=== PATIENT | male | born 1975 | race Hispanic/Latino ===

== ENCOUNTER 2021-10-18 12:48 | Emergency (ER) | payer OTHER ==
[~2021-10-18] VITALS: Ht 177.8 cm; Wt 117.9 kg
[2021-10-18] MEDS ORDERED: METOCLOPRAMIDE HCL 10 MG/2ML VIAL IM ONE (13:15)
[2021-10-18] MEDS ORDERED: TETRACAINE HCL 0.5% OPTH SOLN 4 ML BTL OP ONE (13:15)
[2021-10-18] MEDS ORDERED: ACETAMINOPHEN-1 EAC4 PO (13:42)
== END 2021-10-18 13:48 | disposition home or self-care (01) ==
LOC: FSED 13:08
DX: H57.11 Ocular pain, right eye (principal); R51.9 Headache, unspecified; K21.9 Gastro-esophageal reflux disease without esophagitis; M19.09 Primary osteoarthritis, other specified site
CPT/HCPCS: 70450; 99283; J2765